=== PATIENT | female | born 1960 | race Asian ===

== ENCOUNTER 2024-01-01 12:44 | Emergency (ER) | payer BC ==
[~2024-01-01] VITALS: Ht 160 cm; Wt 78.2 kg
[2024-01-01 12:48] VITALS: TEMP 97.9
[2024-01-01 13:47] LABS: BASO % 0.6 % (0.0-2.0); EOS # 0.1 K/mm3 (0.0-0.7); EOS % 2.4 % (0.0-4.0); GRAN # 3.2 K/mm3 (1.4-6.5); GRAN % 65.5 % (42.2-75.2); LYMPH # 1.1 K/mm3 (1.2-3.4); LYMPH % 22.8 % (20.0-51.0); MEAN CELL VOLUME 72 fl (80.0-100.0); MEAN CORPUSCULAR HEMOGLOBIN 24 pg (27-31); MEAN CORPUSCULAR HGB CONC 33 g/dl (33.0-37.0); MEAN PLATELET VOLUME 10.2 fl (7.4-10.4); MONO # 0.4 K/mm3 (0.1-0.6); MONO % 8.5 % (1.7-9.3); PLATELET COUNT 375 K/mm3 (130-400); RED BLOOD COUNT 4.99 M/mm3 (4.10-5.30); REDCELL DISTRIBUTION WIDTH-CV 17.2 % (11.5-14.5)
[2024-01-01 14:10] LABS: ALBUMIN 3.4 g/dL (3.4-4.8); BILIRUBIN,TOTAL 0.6 mg/dL (0.2-1.2); CALCIUM 8.8 mg/dL (8.4-10.2); CREATININE, serum 0.82 mg/dL (0.57-1.11); MAGNESIUM 1.7 mg/dL (1.6-2.6); TOTAL PROTEIN 7.4 g/dl (6.2-8.1)
[2024-01-01 14:20] LABS: POTASSIUM 2.6 mEq/L (3.5-4.5)
[2024-01-01 14:39] LABS: COLLECTION METHOD CLEAN CATCH
[2024-01-01 14:56] LABS: URINE APPEARANCE CLEAR (CLEAR/HAZY); URINE BLOOD NEGATIVE (NEGATIVE); URINE COLOR YELLOW (YELLOW); URINE GLUCOSE NEGATIVE (NEGATIVE); URINE KETONE NEGATIVE (NEGATIVE); URINE NITRATE NEGATIVE (NEGATIVE); URINE PROTEIN(semi-quant) NEGATIVE (NEGATIVE); URINE UROBILINOGEN 0.2 E.U/dL (0.2-1.0)
[2024-01-01] MEDS ORDERED: LR 1,000 ML IV ONE (15:00)
[2024-01-01] MEDS ORDERED: Magnesium Sulfate 4% 50 ML IV ONE (15:00)
[2024-01-01 17:15] VITALS: BP 136/88; PULSE 71
== END 2024-01-01 17:21 | disposition home or self-care (01) ==
LOC: COL.ER 12:44
PROVIDERS: Emergency Medicine
DX: J10.1 Influenza due to other identified influenza virus with other respiratory manifestations (principal); E86.0 Dehydration; E87.6 Hypokalemia; E87.8 Other disorders of electrolyte and fluid balance, not elsewhere classified; E83.42 Hypomagnesemia
CPT/HCPCS: J3475; J7120